=== PATIENT | female | born 1960 ===

== ENCOUNTER 2021-05-07 11:54 | Emergency (ER) | payer SELFPAY ==
[2021-05-07] MEDS ORDERED: Ibuprofen 800 MG TAB ONE (14:16)
== END 2021-05-07 14:17 | disposition home or self-care (01) ==
LOC: ERS 11:54
DX: H72.91 Unspecified perforation of tympanic membrane, right ear (principal); H73.892 Other specified disorders of tympanic membrane, left ear
CPT/HCPCS: 99282